=== PATIENT | male | born 1990 | race Caucasian/White ===

== ENCOUNTER → 2020-12-07 | Outpatient (REF) ==
--- NOTE | 2020-12-07 10:46 | Diagnostic Imaging Report ---
INDICATION: Left shoulder pain. Time of exam: 10:22 AM 3 views of the left shoulder were obtained. Glenohumeral and acromioclavicular alignment are normal. Acromiohumeral space is normal. No fracture or dislocation is seen. IMPRESSION: No acute bony abnormality is detected. Dictated by: Dictated on workstation # [id number]
== END ==
LOC: ORTHO 10:03 → OCC 10:03
PROVIDERS: ATTEND Family Medicine
DX: M25.512 Pain in left shoulder (principal)
CPT/HCPCS: 73030